=== PATIENT | male | born 1970 | race Caucasian/White ===

== ENCOUNTER 2018-10-23 20:38 | Emergency (ER) | payer BC ==
--- OUTSIDE RECORDS SUMMARY | 2018-10-23 20:51 | XMS REPORT | Continuity of Care Document ---
:1970 External Reference #:[id number] Author Name Gen Parikh, Address [address] [place] [address] Care Team Providers Name Role Phone Gen Parikh DO Care Team Information Feeder Catcher Tobacco Unavailable Payers Date Identification Numbers Payment Provider Subscriber Policy Number: [id number] BCBS Ppo Shelly Logan PayID: [id number] [address] [address] [place] [address] Problems Active Problems Provider Date Essential hypertension Matt Hendrickson DO Onset: 02/16/2015 Family history of prostate cancer Matt Hendrickson DO Onset: 02/16/2015 Obstructive sleep apnea syndrome Matt Hendrickson DO Onset: 02/16/2015 Constipation Matt Hendrickson DO Onset: 02/16/2015 Hypothyroidism Matt Hendrickson DO Onset: 02/16/2016 Family History Date Family Member(s) Observation Comments Father Hypertension Father Melanoma - Back Father Colon Cancer. 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 Hand Dominance RIGHT-handed Tobacco Use Start: Unknown End: Former Cigarette Smoker Smokeless Tobacco Current Smokeless Tobacco ONCE PER MONTH User, Uses Occasionally ETOH Use Denies alcohol use Tobacco Use Start: Unknown Patient has never smoked Allergies, Adverse Reactions, Alerts Description No Known Drug Allergies Medications Active Medications SIG Qnty Indications Ordering Provider Date Vitamin C 1 Tab Daily Gen Parikh, 03/26/2018 250mg Chewtabs DO Levothyroxine Sodium Take One Tablet 90tabs E03.9 Gen Parikh, 2017 By Mouth Every DO 75mcg Tablets Day Ranitidine HCL Take One Tablet 180tabs K21.9 Gen Parikh, 03/27/2017 150mg By Mouth Twice DO Tablets A Day Carvedilol Take One Tablet 180tabs I10 Gen Parikh, 11/08/2015 12.5mg Tablets By Mouth Twice DO A Day Valsartan-Hydrochlorot Take One Tablet 90tabs I10 Gen Parikh, 2014 hiazide By Mouth Every DO 320-25mg Tablets Day History Medications Iron (Ferrous Sulfate) 2 by mouth every 90tabs Jl, 03/26/2018 - day DO Gen 09/25/2018 142(45Fe) mg Tablets ER Levothyroxine Sodium Take One Tablet By 90tabs E03.9 Jl, 08/06/2017 - 50mcg Mouth Every Day DO Gen 09/21/2017 Tablets KLS Acid Children Librarian Maximum 1 by mouth twice a 180tabs Madhavi, 03/26/2017 - Strength day DO Matt 03/27/2017 150mg Tablets Ciclopirox Olamine apply to area 90gm B35.9 Madhavi, 03/23/2017 - 0.77% twice a day DO Matt 09/21/2017 Cream Methylprednisolone dose pack per 21units S00.8 Gasper, 11/29/2016 - 4mg TBPK instructions in SANDRITA Vazquez 03/23/2017 package Proctofoam HC apply to anal area 30gm Madhavi, 08/17/2015 - 1-1% Foam three times a day DO Matt 11/08/2015 X 2 Weeks Synthroid Take One Tablet By 90tabs E03.9 Madhavi, 08/17/2015 - 50mcg Tablets Mouth Every Day DO Matt 08/06/2017 Miralax 17 grams in 8 oz 1581units K59.0 Madhavi, 11/30/2014 - 3350NF Powder of fluid every day 0 DO Matt 09/21/2017 as needed constipation Amlodipine Besylate Take One Tablet By 90tabs I10 Madhavi, 11/17/2014 - 10mg Mouth Every Day Matt, DO 11/08/2015 Tablets No Active Medications Unknown 10/12/2014 - 10/12/2014 Augmentin 1 by mouth twice a 20tabs 461.8 Madhavi, 09/22/2014 - 500-125mg Tablets day Matt, DO 10/12/2014 Astepro 2 puffs each 1units 461.8 Madhavi, 09/22/2014 - 0.15% Solution nostril every d Matt, DO 09/25/2018 Valsartan-Hydrochlorothi 1 by mouth every Unknown - azide day 11/17/2014 80-12.5mg Tablets Immunizations CPT Code Status Date Vaccine Reaction Lot # [id number] Given 02/23/2018 Afluria Imunization 65606 Given 02/10/2017 Afluria Or Fluvirin Flu Vac Given at [facility],Rte 281 [id number] Given 09/18/2016 Tdap (Adacel) Ages 7 And Im inj completed, Pt [id number] Above Only tolerated well Q2037 Given 02/15/2016 Fluvirin Immunization Given At [facility]/281 74133 Given 02/23/2015 Influenza Vaccine Given At Pharmacy Preservative & Antibiotic [facility] Free For Im Use 20611 Given 01/31/2014 Afluria Or Fluvirin Flu Vac [facility] Intramuscular 37576 Given Unknown Influenza Vaccine Preservative & Antibiotic Free For Im Use Vital Signs Date Vital Result Comment 09/25/2018 11:04am Weight 265.00 lb Heart Rate 60 /min BP Systolic 148 mmHg BP Diastolic 90 mmHg BP Systolic Recheck 136 mmHg BP Diastolic Recheck 88 mmHg Respiratory Rate 18 /min Height 70.75 inches 5'10.75" BMI (Body Mass Index) 37.2 kg/m2 03/26/2018 10:05am Weight 257.00 lb Heart Rate 70 /min BP Systolic 120 mmHg BP Diastolic 66 mmHg Respiratory Rate 18 /min Height 70.75 inches 5'10.75" (09/2017) BMI (Body Mass Index) 36.1 kg/m2 09/21/2017 10:11am Weight 260.00 lb Heart Rate 72 /min BP Systolic 138 mmHg BP Diastolic 84 mmHg Respiratory Rate 18 /min Height 70.75 inches 5'10.75" (09/2017) BMI (Body Mass Index) 36.5 kg/m2 03/23/2017 8:26am Weight 258.00 lb Heart Rate 64 /min 72 Reg BP Systolic 130 mmHg BP Diastolic 80 mmHg BP Systolic Recheck 120 mmHg BP Diastolic Recheck 80 mmHg Respiratory Rate 18 /min Height 70.5 inches 5'10.50" 09/18/16 BMI (Body Mass Index) 36.5 kg/m2 11/29/2016 9:45am Body Temperature 98.2 F Weight 256.00 lb Heart Rate 74 /min BP Systolic 138 mmHg BP Diastolic 84 mmHg Respiratory Rate 18 /min Height 70.5 inches 5'10.50" 09/18/16 BMI (Body Mass Index) 36.2 kg/m2 09/18/2016 2:04pm Weight 253.12 lb Heart Rate 64 /min 72 Reg BP Systolic 126 mmHg BP Diastolic 64 mmHg BP Systolic Recheck 126 mmHg BP Diastolic Recheck 78 mmHg Respiratory Rate 16 /min Height 70.5 inches 5'10.50" 09/18/16 BMI (Body Mass Index) 35.8 kg/m2 02/16/2016 8:56am Weight 253.00 lb Heart Rate 72 /min 72 Reg BP Systolic 124 mmHg BP Diastolic 82 mmHg BP Systolic Recheck 120 mmHg BP Diastolic Recheck 80 mmHg Respiratory Rate 18 /min Height 70.75 inches 5'10.75" BMI (Body Mass Index) 35.5 kg/m2 11/08/2015 1:34pm Weight 250.00 lb Heart Rate 72 /min BP Systolic 110 mmHg BP Diastolic 72 mmHg Respiratory Rate 18 /min Height 70.5 inches 5'10.50" BMI (Body Mass Index) 35.4 kg/m2 08/17/2015 8:55am Weight 248.00 lb Heart Rate 78 /min 72 Reg BP Systolic 120 mmHg BP Diastolic 68 mmHg BP Systolic Recheck 120 mmHg BP Diastolic Recheck 70 mmHg Respiratory Rate 18 /min Height 70.5 inches 5'10.50" BMI (Body Mass Index) 35.1 kg/m2 02/16/2015 1:47pm Weight 246.00 lb Heart Rate 72 /min BP Systolic 112 mmHg BP Diastolic 78 mmHg Respiratory Rate 18 /min Height 70.25 inches 5'10.25" BMI (Body Mass Index) 35.0 kg/m2 11/17/2014 3:01pm Weight 241.00 lb BP Systolic 138 mmHg BP Diastolic 90 mmHg Height 70.25 inches 5'10.25" BMI (Body Mass Index) 34.3 kg/m2 10/12/2014 3:38pm Weight 237.00 lb Heart Rate 72 /min BP Systolic 168 mmHg BP Diastolic 102 mmHg BP Systolic Recheck 160 mmHg LG Cuff Both Arms BP Diastolic Recheck 102 mmHg LG Cuff Both Arms Respiratory Rate 18 /min Height 70.25 inches 5'10.25" BMI (Body Mass Index) 33.8 kg/m2 09/22/2014 2:26pm Body Temperature 98.2 F Weight 234.00 lb Heart Rate 78 /min BP Systolic 176 mmHg BP Diastolic 100 mmHg BP Systolic Recheck 150 mmHg Both Arms BP Diastolic Recheck 100 mmHg Both Arms Respiratory Rate 18 /min O2 % BldC Oximetry 98 % Ra 04/25/2006 9:49am Weight 237.00 lb Heart Rate 66 /min BP Systolic 118 mmHg BP Diastolic 72 mmHg Respiratory Rate 18 /min 03/23/2006 11:33am Weight 231.00 lb Heart Rate 78 /min BP Systolic 126 mmHg BP Diastolic 88 mmHg Respiratory Rate 24 /min 12/02/2004 1:49pm Weight 227.00 lb Heart Rate 80 /min BP Systolic 130 mmHg BP Diastolic 100 mmHg Results Test Date Facility Test Result H/L Range Note Laboratory test finding 09/17/2018 [facility] T4 0.87 ng/dL 0.70-1.48 PSA 2.480 ng/mL 0.000-4.000 1 CBC with Auto Diff-fcmg 09/17/2018 [facility] WBC 7.7 K/uL 4.1-11.0 RBC 5.36 M/uL 4.60-6.10 Hemoglobin 16.2 gm/dL 13.5-18.0 Hematocrit 47.0 % 41.0-53.0 MCV 87.6 fL 80.0-97.0 MCH 30.1 pg 27.0-32.0 MCHC 34.4 g/dL 32.0-36.0 RDW 14.9 % High 11.5-14.5 PLT Count 186 K/ul 140-400 MPV 9.5 FL 7.1-10.7 Neutrophil 74.6 % 35.0-75.0 Lymphocyte 12.8 % Low 16.0-52.0 Monocyte 11.1 % High 2.0-10.0 Eosinophil 1.0 % 0.0-5.0 Basophil 0.5 % 0.0-4.0 Abs Neutrophils 5.7 K/uL 2.1-8.0 Abs Lymphocytes 1.0 K/uL 0.8-5.5 Abs Monocytes 0.8 K/uL 0.1-1.0 Abs Eosinophils 0.1 K/uL 0.0-0.5 Abs Basophils 0.0 K/uL 0.0-0.3 Basic (BMP) 09/17/2018 [facility] Sodium 141 mmol/L 135-146 2 Potassium 3.5 mmol/L 3.5-5.2 Chloride# 101 mmol/L 97-110 3 Carbon Dioxide 29 mmol/L 24-34 Glucose 100 mg/dL 70-105 BUN 18 mg/dL 6-26 Creatinine 1.2 mg/dL 0.5-1.4 Calcium 9.5 mg/dL 8.5-10.5 4 Female Egfr 55 Low >60 5 Male Egfr 73 >60 6 Anion Gap 11 mmol/L 5-15 7 Laboratory test finding 09/17/2018 [facility] TSH 5.67 uIU/mL High 0.35- 4.94 Lipid Treatment 09/17/2018 [facility] Cholesterol 179 mg/dL 50-199 Triglycerides 182 mg/dL 30-200 HDL 32 mg/dL 29-71 8 Chol/ HDL Ratio 5.7 ratio 4.0-6.7 VLDL 36 mg/dL High 2-29 LDL (Calc) 111 mg/dL High 20-99 9 Alt 29 U/L 3-42 Ast 20 U/L 8-42 Laboratory test finding 05/28/2018 [facility] Iron, Total 31 g/dL Low 65- 175 CBC with Auto Diff-fcmg 05/28/2018 [facility] WBC 6.7 K/uL 4.1-11.0 RBC 4.94 M/uL 4.60-6.10 Hemoglobin 12.8 gm/dL Low 13.5-18.0 Hematocrit 39.5 % Low 41.0-53.0 10 MCV 79.9 fL Low 80.0-97.0 MCH 26.0 pg Low 27.0-32.0 MCHC 32.5 g/dL 32.0-36.0 RDW 14.8 % High 11.5-14.5 PLT Count 203 K/ul 140-400 MPV 10.3 FL 7.1-10.7 Neutrophil 70.5 % 35.0-75.0 Lymphocyte 14.7 % Low 16.0-52.0 Monocyte 13.0 % High 2.0-10.0 Eosinophil 1.1 % 0.0-5.0 Basophil 0.7 % 0.0-4.0 Abs Neutrophils 4.8 K/uL 2.1-8.0 Abs Lymphocytes 1.0 K/uL 0.8-5.5 Abs Monocytes 0.9 K/uL 0.1-1.0 Abs Eosinophils 0.1 K/uL 0.0-0.5 Abs Basophils 0.0 K/uL 0.0-0.3 CBC with Auto Diff-fcmg 03/19/2018 [facility] WBC 5.8 K/uL 4.1-11.0 11 RBC 2.92 M/uL Low 4.60-6.10 Hemoglobin 8.7 gm/dL Low 13.5-18.0 Hematocrit 25.7 % Low 41.0-53.0 MCV 87.9 fL 80.0-97.0 MCH 29.6 pg 27.0-32.0 MCHC 33.7 g/dL 32.0-36.0 RDW 14.4 % 11.5-14.5 PLT Count 237 K/ul 140-400 MPV 9.0 FL 7.1-10.7 Neutrophil 73.8 % 35.0-75.0 Lymphocyte 14.1 % Low 16.0-52.0 Monocyte 11.0 % High 2.0-10.0 Eosinophil 0.8 % 0.0-5.0 Basophil 0.3 % 0.0-4.0 Abs Neutrophils 4.3 K/uL 2.1-8.0 Abs Lymphocytes 0.8 K/uL 0.8-5.5 Abs Monocytes 0.6 K/uL 0.1-1.0 Abs Eosinophils 0.0 K/uL 0.0-0.5 Abs Basophils 0.0 K/uL 0.0-0.3 Basic (BMP) 03/19/2018 [facility] Sodium 141 mmol/L 135-146 12 Potassium 3.8 mmol/L 3.5-5.2 Chloride# 104 mmol/L 97-110 13 Carbon Dioxide 28 mmol/L 24-34 Glucose 97 mg/dL 70-105 BUN 18 mg/dL 6-26 Creatinine 1.2 mg/dL 0.5-1.4 Calcium 9.0 mg/dL 8.5-10.2 Non Nano Egfr >60 >60 14 Nano Egfr >60 >60 15 Anion Gap 9 mmol/L 5-15 16 Laboratory test finding 03/19/2018 [facility] TSH 4.48 uIU/mL 0.35-4.94 Lipid Treatment 03/19/2018 [facility] Cholesterol 154 mg/dL 50-199 Triglycerides 147 mg/dL 30-200 HDL 31 mg/dL 29-71 17 Chol/ HDL Ratio 5.0 ratio 4.0-6.7 VLDL 29 mg/dL 2-29 LDL (Calc) 94 mg/dL 20-99 18 Alt 19 U/L 3-42 Ast 14 U/L 8-42 Laboratory test finding 03/19/2018 [facility] Free T4 1.05 ng/dL 0.70-1.48 Laboratory test finding 11/02/2017 [facility] TSH 3.30 uIU/mL 0.35-4.94 T3 Total 1.1 ng/mL (0.7-1.9) 19 Free T4 1.09 ng/dL 0.70-1.48 PSA 2.690 ng/mL 0.000-4.000 20 Laboratory test 11/02/2017 [facility] Thyroglobulin 70.00 IU/mL High 0.00- 40.00 21 finding AutoAB Thyroid Peroxidase Antibody 191.00 IU/mL High 0.00-25.00 22 CBC With Auto Diff 09/14/2017 [facility] WBC 6.9 K/uL 4.1-11.0 23 RBC 5.09 M/uL 4.60-6.10 Hemoglobin 15.2 gm/dL 13.5-18.0 Hematocrit 44.1 % 41.0-53.0 MCV 86.6 fL 80.0-97.0 MCH 29.8 pg 27.0-32.0 MCHC 34.4 g/dL 32.0-36.0 RDW 13.2 % 11.5-14.5 PLT Count 208 K/ul 140-400 MPV 9.8 FL 7.1-10.7 Neutrophil 70.7 % 35.0-75.0 Lymphocyte 16.0 % 16.0-52.0 Monocyte 12.0 % High 2.0-10.0 Eosinophil 0.9 % 0.0-5.0 Basophil 0.4 % 0.0-4.0 Abs Neutrophils 4.9 K/uL 2.1-8.0 Abs Lymphocytes 1.1 K/uL 0.8-5.5 Abs Monocytes 0.8 K/uL 0.1-1.0 Abs Eosinophils 0.1 K/uL 0.0-0.5 Abs Basophils 0.0 K/uL 0.0-0.3 Basic (BMP) 09/14/2017 [facility] Sodium 142 mmol/L 135-146 24 Potassium 3.7 mmol/L 3.5-5.2 Chloride# 104 mmol/L 97-110 25 Carbon Dioxide 27 mmol/L 24-34 Glucose 95 mg/dL 70-105 BUN 14 mg/dL 6-26 Creatinine 1.2 mg/dL 0.5-1.4 Calcium 9.5 mg/dL 8.5-10.2 Non Nano Egfr >60 >60 26 Nano Egfr >60 >60 27 Anion Gap 11 mmol/L 5-15 28 Laboratory test finding 09/14/2017 [facility] TSH 7.44 uIU/mL High 0.35- 4.94 Free T4 1.00 ng/dL 0.70-1.48 Lipid 09/14/2017 [facility] Cholesterol 173 mg/dL 50-199 Triglycerides 189 mg/dL 30-200 HDL 32 mg/dL 29-71 29 Chol/ HDL Ratio 5.3 ratio 4.0-6.7 VLDL 38 mg/dL High 2-29 LDL (Calc) 103 mg/dL High 20-99 30 Lipid 03/16/2017 [facility] Cholesterol 170 mg/dL 50-199 Triglycerides 131 mg/dL 30-150 HDL 34 mg/dL Low 40-71 31 Chol/ HDL Ratio 4.9 ratio 4.0-6.7 VLDL 26 mg/dL 2-29 LDL (Calc) 109 mg/dL 20-129 32 CBC With Auto Diff 03/16/2017 [facility] WBC 7.2 K/uL 4.1-11.0 RBC 5.07 M/uL 4.60-6.10 Hemoglobin 15.1 gm/dL 13.5-18.0 Hematocrit 44.0 % 41.0-53.0 MCV 86.8 fL 80.0-97.0 MCH 29.8 pg 27.0-32.0 MCHC 34.3 g/dL 32.0-36.0 RDW 12.9 % 11.5-14.5 PLT Count 207 K/ul 140-400 MPV 9.6 FL 7.1-10.7 Neutrophil 70.2 % 35.0-75.0 Lymphocyte 17.7 % 16.0-52.0 Monocyte 10.8 % High 2.0-10.0 Eosinophil 0.7 % 0.0-5.0 Basophil 0.6 % 0.0-4.0 Abs Neutrophils 5.0 K/uL 2.1-8.0 Abs Lymphocytes 1.3 K/uL 0.8-5.5 Abs Monocytes 0.8 K/uL 0.1-1.0 Abs Eosinophils 0.0 K/uL 0.0-0.5 Abs Basophils 0.0 K/uL 0.0-0.3 Basic (BMP) 03/16/2017 [facility] Sodium 143 mmol/L 135-146 33 Potassium 3.5 mmol/L 3.5-5.2 Chloride# 104 mmol/L 97-110 34 Carbon Dioxide 27 mmol/L 24-34 Glucose 91 mg/dL 70-105 Creatinine 1.1 mg/dL 0.5-1.4 Calcium 9.3 mg/dL 8.5-10.2 Non Nano Egfr >60 >60 35 Nano Egfr >60 >60 36 Anion Gap 12 mmol/L 7-16 37 BUN 14 mg/dL 6-26 Laboratory test finding 03/16/2017 [facility] TSH 4.46 uIU/mL 0.35-4.94 Free T4 0.96 ng/dL 0.70-1.48 CBC With Auto Diff 09/11/2016 [facility] WBC 7.6 K/uL 4.1-11.0 RBC 4.62 M/uL 4.60-6.10 Hemoglobin 13.7 gm/dL 13.5-18.0 Hematocrit 40.6 % Low 41.0-53.0 MCV 87.7 fL 80.0-97.0 MCH 29.7 pg 27.0-32.0 MCHC 33.8 g/dL 32.0-36.0 RDW 14.4 % 11.5-14.5 PLT Count 218 K/ul 140-400 Neutrophil 71.1 % 35.0-75.0 Lymphocyte 16.7 % 16.0-52.0 Monocyte 10.5 % High 2.0-10.0 Eosinophil 0.9 % 0.0-5.0 Basophil 0.8 % 0.0-4.0 Abs Neutrophils 5.4 K/uL 2.1-8.0 Abs Lymphocytes 1.3 K/uL 0.8-5.5 Abs Monocytes 0.8 K/uL 0.1-1.0 Abs Eosinophils 0.1 K/uL 0.0-0.5 Abs Basophils 0.1 K/uL 0.0-0.3 Basic (BMP) 09/11/2016 [facility] Sodium 141 mmol/L 135-146 38 Potassium 4.2 mmol/L 3.5-5.2 Chloride# 106 mmol/L 97-110 39 Carbon Dioxide 29 mmol/L 24-34 Glucose 87 mg/dL 70-105 BUN 19 mg/dL 6-26 Creatinine 1.1 mg/dL 0.5-1.4 Calcium 9.8 mg/dL 8.5-10.2 Non Nano Egfr >60 >60 40 Nano Egfr >60 >60 41 Anion Gap 10 mmol/L 7-16 42 Laboratory test finding 09/11/2016 [facility] TSH 4.81 uIU/mL 0.35-4.94 Free T4 0.86 ng/dL 0.70-1.48 PSA 2.750 ng/mL 0.000-4.000 43 Laboratory test finding 11/08/2015 [facility] TSH 3.38 uIU/mL 0.35-4.94 44 Free T4 0.85 ng/dL 0.70-1.48 CBC With Auto Diff 08/17/2015 [facility] WBC 6.5 K/uL 4.1-11.0 RBC 4.20 M/uL Low 4.60-6.10 Hemoglobin 10.0 gm/dL Low 13.5-18.0 Hematocrit 31.6 % Low 41.0-53.0 MCV 75.3 fL Low 80.0-97.0 MCH 23.7 pg Low 27.0-32.0 MCHC 31.5 g/dL Low 32.0-36.0 RDW 15.4 % High 11.5-14.5 PLT Count 236 K/ul 140-400 Neutrophil 69.2 % 35.0-75.0 Lymphocyte 19.0 % 16.0-52.0 Monocyte 9.9 % 2.0-10.0 Eosinophil 1.5 % 0.0-5.0 Basophil 0.4 % 0.0-4.0 Abs Neutrophils 4.5 K/uL 2.1-8.0 Abs Lymphocytes 1.2 K/uL 0.8-5.5 Abs Monocytes 0.6 K/uL 0.1-1.0 Abs Eosinophils 0.1 K/uL 0.0-0.5 Abs Basophils 0.0 K/uL 0.0-0.3 Comprehensive Metabolic (CMP) 08/17/2015 [facility] Sodium 138 mmol/L 134- 142 Potassium 3.8 mmol/L 3.5-5.2 Chloride 104 mmol/L 97-109 Carbon Dioxide 26 mmol/L 24-34 Glucose 79 mg/dL 70-105 BUN 17 mg/dL 6-26 Creatinine 1.0 mg/dL 0.5-1.4 Calcium 9.2 mg/dL 8.5-10.2 Total Protein 6.6 g/dL 6.0-8.0 Albumin 3.9 g/dL 3.6-4.9 Globulin 2.7 g/dL 2.0-3.5 A/G Ratio 1.4 Ratio 1.0-2.2 Total Bilirubin 0.6 mg/dL 0.1-1.3 Alkaline Phosphatase 63 U/L 24-140 Alt 18 U/L 3-42 Ast 14 U/L 8-42 Anion Gap 12 mmol/L 6-14 Nano Egfr >60 >60 45 Non Nano Egfr >60 >60 46 Lipid 08/17/2015 [facility] Cholesterol 134 mg/dL 50-199 Triglycerides 113 mg/dL 30-150 HDL 30 mg/dL Low 40-71 47 Chol/ HDL Ratio 4.5 ratio 4.0-6.7 VLDL 23 mg/dL 2-29 LDL (Calc) 81 mg/dL 20-99 48 Laboratory test finding 08/17/2015 [facility] TSH 5.94 uIU/mL High 0.35- 4.94 Vitamin B12 272 pg/mL 180-914 Vit D,25 Hydroxy 31 ng/mL 31-100 PSA 2.120 ng/mL 0.000-4.000 49 Basic (BMP) 02/10/2015 [facility] Sodium 140 mmol/L 134-142 50 Potassium 3.7 mmol/L 3.5-5.2 Chloride 103 mmol/L 97-109 Carbon Dioxide 29 mmol/L 24-34 Glucose 84 mg/dL 70-105 BUN 16 mg/dL 6-26 Creatinine 1.1 mg/dL 0.5-1.4 Calcium 9.3 mg/dL 8.5-10.2 Anion Gap 12 mmol/L 6-14 Non Nano Egfr >60 >60 51 Nano Egfr >60 >60 52 Lipid 10/06/2014 [facility] Cholesterol 154 mg/dL 50-199 53 Triglycerides 96 mg/dL 30-150 HDL 35 mg/dL Low 40-71 54 Chol/ HDL Ratio 4.4 ratio 4.0-6.7 VLDL 19 mg/dL 2-29 LDL (Calc) 100 mg/dL 20-129 55 Laboratory test finding 10/06/2014 [facility] TSH 4.92 uIU/mL 0.35-4.94 Vitamin B12 319 pg/mL 180-914 Comprehensive Metabolic (CMP) 10/06/2014 [facility] Sodium 138 mmol/L 134- 142 Potassium 3.9 mmol/L 3.5-5.2 Chloride 106 mmol/L 97-109 Carbon Dioxide 25 mmol/L 24-34 Glucose 83 mg/dL 70-105 BUN 23 mg/dL 6-26 Creatinine 1.0 mg/dL 0.5-1.4 Calcium 8.8 mg/dL 8.5-10.2 Total Protein 6.6 g/dL 6.0-8.0 Albumin 4.2 g/dL 3.6-4.9 Globulin 2.4 g/dL 2.0-3.5 A/G Ratio 1.8 Ratio 1.0-2.2 Total Bilirubin 1.4 mg/dL High 0.1-1.3 Alkaline Phosphatase 61 U/L 24-140 Alt 22 U/L 3-42 Ast 17 U/L 8-42 Anion Gap 11 mmol/L 6-14 Nano Egfr >60 >60 56 Non Nano Egfr >60 >60 57 CBC With Auto Diff 10/06/2014 [facility] WBC 5.7 K/uL 4.1-11.0 RBC 4.51 M/uL Low 4.60-6.10 Hemoglobin 12.2 gm/dL Low 13.5-18.0 Hematocrit 37.3 % Low 41.0-53.0 MCV 82.7 fL 80.0-97.0 MCH 27.0 pg 27.0-32.0 MCHC 32.6 g/dL 32.0-36.0 RDW 13.5 % 11.5-14.5 PLT Count 229 K/ul 140-400 Neutrophil 62.4 % 35.0-75.0 Lymphocyte 22.2 % 16.0-52.0 Monocyte 12.1 % High 2.0-10.0 Eosinophil 2.5 % 0.0-5.0 Basophil 0.8 % 0.0-4.0 Abs Neutrophils 3.6 K/uL 2.1-8.0 Abs Lymphocytes 1.3 K/uL 0.8-5.5 Abmon 0.7 K/uL 0.1-1.0 Abs Eosinophils 0.1 K/uL 0.0-0.5 Abs Basophils 0.0 K/uL 0.0-0.3 1 Beginning 07/09/06 PSA values assayed at [facility] uses chemiluminescence methodology manufactured by [employer] for use on the DXI analyzer. Values obtained with different assay methods or kits can not be used interchangeably. Serum PSA measurement is not an absolute test for malignancy. The PSA value should be used in conjunction with information available from clinical evaluation and other diagnostic procedures. 2 Updated reference range on new analyzer 3 Updated reference range on new analyzer 4 Updated reference range 09-11-2018 5 Concerning GFR Guidelines for Americans: Normal function or mild renal disease, if clinically at risk: >/=60 mL/min Moderately decreased: 30-59 Severely decreased: 15-29 Renal failure: <15 There is reduced accuracy above 60ml/min/1.73 m squared, but the numeric value may be clinically useful in the near 60 range 6 Concerning GFR Guidelines: Normal function or mild renal disease, if clinically at risk: >/=60 mL/min Moderately decreased: 30-59 Severely decreased: 15-29 Renal failure: <15 There is reduced accuracy above 60ml/min/1.73 m squared, but the numeric value may be clinically useful in the near 60 range Glomerular Filtration Rate (GFR) is estimated based on the CKD-EPI equation, which assumes a steady state for creatinine as recommended by the National Kidney Disease Education Program in conjunction with the National Institutes of Health and the National Kidney Foundation. Clinical conditions in which it may be necessary to measure GFR by using clearance methods include extremes of age and body size, severe malnutrition or obesity, diseases of skeletal muscle, paraplegia or quadriplegia, vegetarian diet, rapidly changing kidney function, and calculation of the dose of potentially toxic drugs that are excreted by the kidneys. 7 Updated Reference Range 8 Per NCEP ATP III Guidelines: Results lower than 40 mg/dL are suggestive of increased risk for coronary artery disease. Results > or=to 60 mg/dL are considered a negative risk factor. 9 Per NCEP ATP III Guidelines: Normal Population <130 Patients with medical conditions: CHD/DM Optimal: <100 Borderline high: 130-159 High: 160-189 Very high: >189 10 Results verified by repeat analysis 11 Fastin hours 12 Updated reference range on new analyzer 13 Updated reference range on new analyzer 14 Concerning GFR Guidelines: Normal function or mild renal disease, if clinically at risk: >/=60 mL/min Moderately decreased: 30-59 Severely decreased: 15-29 Renal failure: <15 Glomerular Filtration Rate (GFR) is estimated based on the MDRD equation, which assumes a steady state for creatinine as recommended by the National Kidney Disease Education Program in conjunction with the National Institutes of Health and the National Kidney Foundation. Clinical conditions in which it may be necessary to measure GFR by using clearance methods include extremes of age and body size, severe malnutrition or obesity, diseases of skeletal muscle, paraplegia or quadriplegia, vegetarian diet, rapidly changing kidney function, and calculation of the dose of potentially toxic drugs that are excreted by the kidneys. 15 Concerning GFR Guidelines for Americans: Normal function or mild renal disease, if clinically at risk: >/=60 mL/min Moderately decreased: 30-59 Severely decreased: 15-29 Renal failure: <15 16 Updated Reference Range 17 Per NCEP ATP III Guidelines: Results lower than 40 mg/dL are suggestive of increased risk for coronary artery disease. Results > or=to 60 mg/dL are considered a negative risk factor. 18 Per NCEP ATP III Guidelines: Normal Population <130 Patients with medical conditions: CHD/DM Optimal: <100 Borderline high: 130-159 High: 160-189 Very high: >189 19 Unless otherwise specified, testing performed by [facility] [address] [place] [id number] 20 Beginning 07/09/06 PSA values assayed at [facility] uses chemiluminescence methodology manufactured by [employer] for use on the DXI analyzer. Values obtained with different assay methods or kits can not be used interchangeably. Serum PSA measurement is not an absolute test for malignancy. The PSA value should be used in conjunction with information available from clinical evaluation and other diagnostic procedures. 21 Interpretation: 0-40 Negative 41-60 Equivocal >60 Positive 22 Interpretation: 0-25 Negative 26-35 Equivocal >35 Positive 23 SCHEDULE 1 WEEK PRIOR TO NEXT VISIT 24 Updated reference range on new analyzer 25 Updated reference range on new analyzer 26 Concerning GFR Guidelines: Normal function or mild renal disease, if clinically at risk: >/=60 mL/min Moderately decreased: 30-59 Severely decreased: 15-29 Renal failure: <15 Glomerular Filtration Rate (GFR) is estimated based on the MDRD equation, which assumes a steady state for creatinine as recommended by the National Kidney Disease Education Program in conjunction with the National Institutes of Health and the National Kidney Foundation. Clinical conditions in which it may be necessary to measure GFR by using clearance methods include extremes of age and body size, severe malnutrition or obesity, diseases of skeletal muscle, paraplegia or quadriplegia, vegetarian diet, rapidly changing kidney function, and calculation of the dose of potentially toxic drugs that are excreted by the kidneys. 27 Concerning GFR Guidelines for Americans: Normal function or mild renal disease, if clinically at risk: >/=60 mL/min Moderately decreased: 30-59 Severely decreased: 15-29 Renal failure: <15 28 Updated Reference Range 29 Per NCEP ATP III Guidelines: Results lower than 40 mg/dL are suggestive of increased risk for coronary artery disease. Results > or=to 60 mg/dL are considered a negative risk factor. 30 Per NCEP ATP III Guidelines: Normal Population <130 Patients with medical conditions: CHD/DM Optimal: <100 Borderline high: 130-159 High: 160-189 Very high: >189 31 Per NCEP ATP III Guidelines: Results lower than 40 mg/dL are suggestive of increased risk for coronary artery disease. Results > or=to 60 mg/dL are considered a negative risk factor. 32 Per NCEP ATP III Guidelines: Normal Population <130 Patients with medical conditions: CHD/DM Optimal: <100 Borderline high: 130-159 High: 160-189 Very high: >189 33 Updated reference range on new analyzer 34 Updated reference range on new analyzer 35 Concerning GFR Guidelines: Normal function or mild renal disease, if clinically at risk: >/=60 mL/min Moderately decreased: 30-59 Severely decreased: 15-29 Renal failure: <15 Glomerular Filtration Rate (GFR) is estimated based on the MDRD equation, which assumes a steady state for creatinine as recommended by the National Kidney Disease Education Program in conjunction with the National Institutes of Health and the National Kidney Foundation. Clinical conditions in which it may be necessary to measure GFR by using clearance methods include extremes of age and body size, severe malnutrition or obesity, diseases of skeletal muscle, paraplegia or quadriplegia, vegetarian diet, rapidly changing kidney function, and calculation of the dose of potentially toxic drugs that are excreted by the kidneys. 36 Concerning GFR Guidelines for Americans: Normal function or mild renal disease, if clinically at risk: >/=60 mL/min Moderately decreased: 30-59 Severely decreased: 15-29 Renal failure: <15 37 Updated reference range on new analyzer 38 Updated reference range on new analyzer 39 Updated reference range on new analyzer 40 Concerning GFR Guidelines: Normal function or mild renal disease, if clinically at risk: >/=60 mL/min Moderately decreased: 30-59 Severely decreased: 15-29 Renal failure: <15 Glomerular Filtration Rate (GFR) is estimated based on the MDRD equation, which assumes a steady state for creatinine as recommended by the National Kidney Disease Education Program in conjunction with the National Institutes of Health and the National Kidney Foundation. Clinical conditions in which it may be necessary to measure GFR by using clearance methods include extremes of age and body size, severe malnutrition or obesity, diseases of skeletal muscle, paraplegia or quadriplegia, vegetarian diet, rapidly changing kidney function, and calculation of the dose of potentially toxic drugs that are excreted by the kidneys. 41 Concerning GFR Guidelines for Americans: Normal function or mild renal disease, if clinically at risk: >/=60 mL/min Moderately decreased: 30-59 Severely decreased: 15-29 Renal failure: <15 42 Updated reference range on new analyzer 43 Beginning 07/09/06 PSA values assayed at [facility] uses chemiluminescence methodology manufactured by [employer] for use on the DXI analyzer. Values obtained with different assay methods or kits can not be used interchangeably. Serum PSA measurement is not an absolute test for malignancy. The PSA value should be used in conjunction with information available from clinical evaluation and other diagnostic procedures. 44 TODAY 45 Concerning GFR Guidelines for Americans: Normal function or mild renal disease, if clinically at risk: >/=60 mL/min Moderately decreased: 30-59 Severely decreased: 15-29 Renal failure: <15 46 Concerning GFR Guidelines: Normal function or mild renal disease, if clinically at risk: >/=60 mL/min Moderately decreased: 30-59 Severely decreased: 15-29 Renal failure: <15 Glomerular Filtration Rate (GFR) is estimated based on the MDRD equation, which assumes a steady state for creatinine as recommended by the National Kidney Disease Education Program in conjunction with the National Institutes of Health and the National Kidney Foundation. Clinical conditions in which it may be necessary to measure GFR by using clearance methods include extremes of age and body size, severe malnutrition or obesity, diseases of skeletal muscle, paraplegia or quadriplegia, vegetarian diet, rapidly changing kidney function, and calculation of the dose of potentially toxic drugs that are excreted by the kidneys. 47 Per NCEP ATP III Guidelines: Results lower than 40 mg/dL are suggestive of increased risk for coronary artery disease. Results > or=to 60 mg/dL are considered a negative risk factor. 48 Per NCEP ATP III Guidelines: Normal Population <130 Patients with medical conditions: CHD/DM Optimal: <100 Borderline high: 130-159 High: 160-189 Very high: >189 49 Beginning 07/09/06 PSA values assayed at [facility] uses chemiluminescence methodology manufactured by [employer] for use on the DXI analyzer. Values obtained with different assay methods or kits can not be used interchangeably. Serum PSA measurement is not an absolute test for malignancy. The PSA value should be used in conjunction with information available from clinical evaluation and other diagnostic procedures. 50 SCHEDULE 1 WEEK PRIOR TO NEXT VISIT Fastin hours 51 Concerning GFR Guidelines: Normal function or mild renal disease, if clinically at risk: >/=60 mL/min Moderately decreased: 30-59 Severely decreased: 15-29 Renal failure: <15 Glomerular Filtration Rate (GFR) is estimated based on the MDRD equation, which assumes a steady state for creatinine as recommended by the National Kidney Disease Education Program in conjunction with the National Institutes of Health and the National Kidney Foundation. Clinical conditions in which it may be necessary to measure GFR by using clearance methods include extremes of age and body size, severe malnutrition or obesity, diseases of skeletal muscle, paraplegia or quadriplegia, vegetarian diet, rapidly changing kidney function, and calculation of the dose of potentially toxic drugs that are excreted by the kidneys. 52 Concerning GFR Guidelines for Americans: Normal function or mild renal disease, if clinically at risk: >/=60 mL/min Moderately decreased: 30-59 Severely decreased: 15-29 Renal failure: <15 53 SCHEDULE 1 WEEK PRIOR TO MYE Fastin hours SCHEDULE 1 WEEK PRIOR TO MYE Fastin hours SCHEDULE 1 WEEK PRIOR TO MYE Fastin hours SCHEDULE 1 WEEK PRIOR TO MYE Fastin hours SCHEDULE 1 WEEK PRIOR TO MYE Fastin hours 54 Per NCEP ATP III Guidelines: Results lower than 40 mg/dL are suggestive of increased risk for coronary artery disease. Results > or=to 60 mg/dL are considered a negative risk factor. 55 Per NCEP ATP III Guidelines: Normal Population <130 Patients with medical conditions: CHD/DM Optimal: <100 Borderline high: 130-159 High: 160-189 Very high: >189 56 Concerning GFR Guidelines for Americans: Normal function or mild renal disease, if clinically at risk: >/=60 mL/min Moderately decreased: 30-59 Severely decreased: 15-29 Renal failure: <15 57 Concerning GFR Guidelines: Normal function or mild renal disease, if clinically at risk: >/=60 mL/min Moderately decreased: 30-59 Severely decreased: 15-29 Renal failure: <15 Glomerular Filtration Rate (GFR) is estimated based on the MDRD equation, which assumes a steady state for creatinine as recommended by the National Kidney Disease Education Program in conjunction with the National Institutes of Health and the National Kidney Foundation. Clinical conditions in which it may be necessary to measure GFR by using clearance methods include extremes of age and body size, severe malnutrition or obesity, diseases of skeletal muscle, paraplegia or quadriplegia, vegetarian diet, rapidly changing kidney function, and calculation of the dose of potentially toxic drugs that are excreted by the kidneys. Procedures Date Code Description Status 10/12/2017 [id number] Colonoscopy Completed 09/21/2017 04667 Visual Screening Test Completed 09/21/2017 21573 Screening Hearing Test Completed 10/12/2014 26357 Electrocardiogram Complete Completed Encounters Type Date Location Provider Dx Diagnosis Office Visit 03/26/2018 Gen Beverly DO I10 Essential (primary) 9:30a hypertension E03.9 Hypothyroidism, unspecified D50.9 Iron deficiency anemia, unspecified K92.2 Gastrointestinal hemorrhage, unspecified Z80.42 Family history of malignant neoplasm of prostate G47.33 Obstructive sleep apnea (adult) (pediatric) K59.00 Constipation, unspecified B35.9 Dermatophytosis, unspecified K21.9 Gastro-esophageal reflux disease without esophagitis J30.9 Allergic rhinitis, unspecified K64.9 Unspecified hemorrhoids Z68.36 Body mass index (BMI) 36.0-36.9, adult Office Visit 09/21/2017 9:45a [facility] Gen Parikh DO Z00.00 Encntr for general adult medical exam w/o abnormal findings I10 Essential (primary) hypertension E03.9 Hypothyroidism, unspecified K92.2 Gastrointestinal hemorrhage, unspecified Z12.5 Encounter for screening for malignant neoplasm of prostate Z80.42 Family history of malignant neoplasm of prostate G47.33 Obstructive sleep apnea (adult) (pediatric) K59.00 Constipation, unspecified B35.9 Dermatophytosis, unspecified K21.9 Gastro-esophageal reflux disease without esophagitis J30.9 Allergic rhinitis, unspecified Z68.36 Body mass index (BMI) 36.0-36.9, adult Office Visit 03/23/2017 8:30a [facility] Matt Hendrickson DO I10 Essential ( primary) hypertension E03.9 Hypothyroidism, unspecified Z80.42 Family history of malignant neoplasm of prostate G47.33 Obstructive sleep apnea (adult) (pediatric) K59.00 Constipation, unspecified B35.9 Dermatophytosis, unspecified Z68.35 Body mass index (BMI) 35.0-35.9, adult Office Visit 11/29/2016 9:45a [facility] Roxi Jackman, S00.86xA Insect bite PA (nonvenomous) of other part of head, init encntr Office Visit 09/18/2016 2:00p [facility] Matt Hendrickson, Z00.00 Encntr for general DO adult medical exam w/o abnormal findings I10 Essential (primary) hypertension E03.9 Hypothyroidism, unspecified Z12.5 Encounter for screening for malignant neoplasm of prostate Z80.42 Family history of malignant neoplasm of prostate G47.33 Obstructive sleep apnea (adult) (pediatric) K59.00 Constipation, unspecified Z23 Encounter for immunization Z68.35 Body mass index (BMI) 35.0-35.9, adult Office Visit 02/16/2016 9:00a [facility] Matt Hendrickson DO I10 Essential ( primary) hypertension E03.9 Hypothyroidism, unspecified Z80.42 Family history of malignant neoplasm of prostate G47.33 Obstructive sleep apnea (adult) (pediatric) K59.00 Constipation, unspecified R60.0 Localized edema Office Visit 11/08/2015 1:45p [facility] Matt Hendrickson DO R60.0 Localized edema I10 Essential (primary) hypertension E03.9 Hypothyroidism, unspecified Office Visit 08/17/2015 9:00a [facility] Matt Hendrickson DO Z00.00 Encntr for general adult medical exam w/o abnormal findings I10 Essential (primary) hypertension Z80.42 Family history of malignant neoplasm of prostate G47.33 Obstructive sleep apnea (adult) (pediatric) K59.00 Constipation, unspecified Z12.5 Encounter for screening for malignant neoplasm of prostate K64.9 Unspecified hemorrhoids Office Visit 02/16/2015 1:45p [facility] Matt Hendrickson DO I10 Essential ( primary) hypertension Z80.42 Family history of malignant neoplasm of prostate G47.33 Obstructive sleep apnea (adult) (pediatric) K59.00 Constipation, unspecified Office Visit 11/17/2014 3:00p [facility] Matt Hendrickson DO 401.1 Hypertension Benign Office Visit 10/12/2014 3:30p [facility] Matt Hendrickson DO V70.0 Exam (Adult ) General Medical Routine AT [facility] 401.1 Hypertension Benign V16.42 Family History Malignant Neoplasm Prostate V76.44 Screening For Malig Jerry Prostate 786.09 Dyspnea & Respiratory Abnormalities Other Office Visit 09/22/2014 2:30p [facility] Matt Hendrickson, V16.0 History Family Malignant DO Neoplasm Gastrointestinal Tract 796.2 Blood Pressure Reading Elevated W/O Hypertension 461.8 Sinusitis Acute Other Plan of Treatment Future Appointment(s):04/02/2019 8:00 am - Gen Parikh DO at [facility]03/28/2019 7:50 am - Schedule, Laboratory at [facility]09/25/2018 - Gen Parikh DOZ00.00 Encounter for general adult medical examination without abnoFollow up:Fasting blood work in 6 months and would follow up with me a couple of days later.K92.2 Gastrointestinal hemorrhage, unspecifiedComments:Improved at the present time after the speed-banding. We will continue to monitor.G47.33 Obstructive sleep apnea (adult) (pediatric)K59.00 Constipation, unspecifiedComments:Improved at the present time. We will continue to monitor.B35.9 Dermatophytosis, cabwllppwkiE10.9 Gastro-esophageal reflux disease without yolqiabzxctD57.9 Allergic rhinitis, ajxbhplbtnlK59.9 Unspecified hemorrhoidsComments:Improved at the present time after the banding. We will continue to monitor.I10 Essential ( primary) hypertensionNew Labs:CBC with Auto Diff-fcmg, Scheduled: 03/28/19Basic (BMP), Scheduled: 03/28/19TSH, Scheduled: 03/28/19Lipid Treatment, Scheduled: Comments:Today, his BP was elevated at 148/90; on recheck 134/86. Patient was advised to continue with the current line of therapies. Patient will benefit from maintaining a low sodium diet. We will continue to monitor.E03.9 Hypothyroidism, unspecifiedNew Labs:Free T4, Scheduled: 03/28/19Z80.42 Family history of malignant neoplasm of pewlgetrK97.9 Obesity, unspecifiedComments:The patient had gained around 8lbs of body weight since the previous visit and he currently weighs around 265lbs. A detailed discussion was had with the patient regarding his body weight and BMI. He was made aware about the health hazards of obesity including diabetes, hypertension, cardiac diseases, and other various risk factors. He was advised to maintain a healthy and low-calorie diet and a regular exercise regimen which will help him lose weight. Greater than 10 minutes spent on counseling.D50.9 Iron deficiency anemia, fmtxwajozegT43.37 Body mass index (BMI) 37.0-37.9, adultComments:His BMI is at 37.2. He was strongly encouraged to lose weight with low-calorie diet and exercises.We will continue to monitor his weight and BMI periodically.
[2018-10-23 20:55] VITALS: BP 142/80
--- NOTE | 2018-10-23 21:21 | UC ---
Lower Extremity/Ankle HPI - HPI Summary HPI Summary: 48-year-old male presents with complaints of right foot pain. States approximately one month ago he developed some pain in the lateral aspect of his right foot while walking on the treadmill. States he has had some intermittent pain in that area since that time. Tonight he was playing basketball with his son and took a quick stop onto his right foot he felt a sudden pop and pain in the lateral aspect of his foot. States he has been unable to bear weight on the foot since the injury due to the pain. Denies any bruising, swelling, numbness or tingling. - History of Current Complaint Stated Complaint: RT FOOT PAIN/INJURY Time Seen by Provider: 10/23/18 20:54 Hx Obtained From: Patient Pain Intensity: 5 - Allergies/Home Medications Allergies/Adverse Reactions: Allergies Allergy/AdvReac Type Severity Reaction Status Date / Time No Known Allergies Allergy Verified 10/23/18 20:57 Home Medications: Home Medications Carvedilol TAB* [Coreg TAB*] 3.125 mg PO BID 10/23/18 [History Confirmed ] Ibuprofen TAB* [Advil TAB*] 400 mg PO Q8H PRN 10/23/18 [History Confirmed ] Levothyroxine TAB* [Synthroid TAB*] 112 mcg PO DAILY 10/23/18 [History Confirmed 10/23/18] Valsartan TAB* [Diovan TAB*] 40 mg PO BID 10/23/18 [History Confirmed 10/23/18] PMH/Surg Hx/FS Hx/Imm Hx Endocrine History: Hypothyroidism Cardiovascular History: Hypertension - Surgical History Surgical History: None - Social History Alcohol Use: None Substance Use Type: None Smoking Status (MU): Never Smoked Tobacco Review of Systems All Other Systems Reviewed And Are Negative: Yes Constitutional: Positive: Negative Skin: Negative: Bruising Respiratory: Positive: Negative Cardiovascular: Positive: Negative Gastrointestinal: Positive: Negative Genitourinary: Positive: Negative Motor: Negative: Weakness Neurovascular: Negative: Decreased Sensation Musculoskeletal: Positive: Other: - See HPI. Negative: Edema Neurological: Positive: Negative Is Patient Immunocompromised?: No Physical Exam - Summary Physical Exam Summary: GENERAL APPEARANCE: Well developed, well nourished, alert and cooperative, and appears to be in no acute distress. CARDIAC: Normal S1 and S2. No S3, S4 or murmurs. Rhythm is regular. There is no peripheral edema, cyanosis or pallor. Extremities are warm and well perfused. Capillary refill is less than 2 seconds. Peripheral pulses intact. LUNGS: Clear to auscultation without rales, rhonchi, wheezing or diminished breath sounds. ABDOMEN: Positive bowel sounds. Soft, nondistended, nontender. No guarding or rebound. No masses or hepatosplenomegally. MUSKULOSKELETAL: Normal muscular development. Normal gait. EXTREMITIES: Tenderness to lateral aspect of the left foot over the proximal 4th and 5th metatarsals without gross deformity, ecchymosis, or edema. Circulation and sensation intact. SKIN: Skin normal color, texture and turgor with no lesions or eruptions. Triage Information Reviewed: Yes Vital Signs: Initial Vital Signs Temp 98.9 F 10/23/18 20:51 Pulse 73 10/23/18 20:51 Resp 16 10/23/18 20:51 BP 142/80 10/23/18 20:51 Pulse Ox 98 10/23/18 20:51 Vital Signs Reviewed: Yes Diagnostics - Radiology No standard instances Radiology Interpretation Completed By: Radiologist Summary of Radiographic Findings: EXAM: XR Right Foot Complete. EXAM DATE/TIME : 10/23/2018 9:09 PM. CLINICAL HISTORY: 48 years old, male; Pain and injury or trauma; Fall; Initial encounter; Sprain. or strain; Injury date: 10/23/18; Injury details: Pain at base of 5th mt right. foot S/P stepping wrong today. TECHNIQUE: Imaging protocol: XR Right foot. Views: 3 or more views. COMPARISON: No relevant prior studies available. FINDINGS: Bones/joints: No acute fracture. No dislocation. Soft tissues: Unremarkable. IMPRESSION: No acute fracture. Lower Extremity Course/Dx - Course Course Of Treatment: 48-year-old male presents with complaints of right foot pain. States approximately one month ago he developed some pain in the lateral aspect of his right foot while walking on the treadmill. States he has had some intermittent pain in that area since that time. Tonight he was playing basketball with his son and took a quick stop onto his right foot he felt a sudden pop and pain in the lateral aspect of his foot. States he has been unable to bear weight on the foot since the injury due to the pain. Denies any bruising, swelling, numbness or tingling. Afebrile. Hypertensive otherwise vital signs stable. Patient had tenderness to lateral aspect of the left foot over the proximal 4th and 5th metatarsals without gross deformity, ecchymosis, or edema. Circulation and sensation intact. X-ray showed no acute fracture. Patient was placed in a cam boot and provided crutches for progressive weightbearing over the next several days. He is to use [id number] analgesics as needed for pain as well as RICE. He is to follow-up with orthopedic surgery in 7 days if symptoms are not improving. Anticipatory guidance and warning symptoms were reviewed with the patient. Verbalizes understanding and agrees with plan of care. - Differential Dx/Diagnosis Differential Diagnosis/HQI/PQRI: Contusion, Dislocation, Fracture (Closed), Sprain, Tendonitis Provider Diagnosis: Right foot sprain Discharge - Sign-Out/Discharge Documenting (check all that apply): Patient Departure All imaging exams completed and their final reports reviewed: Yes - Discharge Plan Condition: Stable Disposition: HOME Patient Education Materials: Crutch Instructions (ED) Referrals: Gen Parikh DO [Primary Care Provider] - Gus Hudson MD [Medical Doctor] - 7 Days Additional Instructions: The x-ray performed in the clinic today showed no evidence of a fracture. I suspect that you have a sprain of the foot. Rest the foot as much as possible. Apply ice to the affected area for 15-20 minutes at least 4 times a day to help with the pain and swelling. Elevate the foot to help reduce swelling. Take acetaminophen (Tylenol) or ibuprofen (Advil, Motrin) according to directions as needed for pain. Follow up with orthopedic surgery in 7 days if symptoms do not improve. Seek immediate medical attention if you have severe pain not managed with pain medication, you are unable to walk or bear any weight, develop numbness or tingling in the foot or toes, or have any worsening of symptoms. - Billing Disposition and Condition Condition: STABLE Disposition: Home
== END 2018-10-23 22:11 | disposition home or self-care (01) ==
LOC: UCCORT 20:38
DX: S93.601A Unspecified sprain of right foot, initial encounter (principal); X50.0XXA Overexertion from strenuous movement or load, initial encounter; Y93.67 Activity, basketball; Y92.9 Unspecified place or not applicable; I10 Essential (primary) hypertension; E03.9 Hypothyroidism, unspecified
CPT/HCPCS: 99203; G0463